=== PATIENT | female | born 1985 | race Two or more races ===

== ENCOUNTER 2019-05-13 06:22 | Day surgery (SDC) | payer OTHER ==
[2019-05-13] VITALS (13 sets, daily range): BP systolic 110–126; BP diastolic 60–80
[~2019-05-13] VITALS: Ht 154.9 cm; Wt 46.7 kg
[~2019-05-13 06:22] MED LIST: ADDERAL20 MG ORAL; CYMBALTA30 MG ORAL; MINIPRESS1 MG PO; ceFAZolin 1gm IVPB IVPB ONE; celeBREX 200mg Cap **SURGERY PATIENTS ONLY ORAL ONE; oxyCONTIN 20mg tab ORAL ONE
[2019-05-13] MEDS ORDERED: Ketorolac 30mg Inj ONE ×2 (07:15→08:13)
[2019-05-13] MEDS ORDERED: Kenalog-40 1ml Vial ONE (07:15)
[2019-05-13] MEDS ORDERED: Bupivacaine 0.25% Inj 30ml INJ ONE (07:16)
[2019-05-13] MEDS ORDERED: Lidocaine 1% 10mg/ml/Epi 0.005mg/ml 30ml vial INJ ONE (07:16)
[2019-05-13] MEDS ORDERED: Duramorph PF 5mg/10ml amp ONE (07:16)
[2019-05-13] MEDS ORDERED: Midazolam 2mg/2ml Inj ONE (07:34)
--- NOTE | 2019-05-13 07:37 | Pre-Procedure Note/Attestation ---
Pre-Procedure Note/Attestation Complete Prior to Procedure Planned Procedure: left Procedure Narrative: knee diagnostic arthroscopy, possible synovectomy, menisectomy Indications for Procedure Pre-Operative Diagnosis: left knee internal derangement Attestation I attest that I discussed the nature of the procedure; its benefits; risks and complications; and alternatives (and the risks and benefits of such alternatives ), prior to the procedure, with the patient (or the patient's legal sales and service representative). I attest that, if there was a reasonable possibility of needing a blood transfusion, the patient (or the patient's legal sales and service representative) was given the [facility] standardized written summary, pursuant to the Zhen Jonathan Blood Safety Act ([place] Health and Safety Code # 1645, as amended). I attest that I re-evaluated the patient just prior to the surgery and that there has been no change in the patient's H&P, except as documented below: Cleveland Loera MD May 13, 2019 07:37
--- NOTE | 2019-05-13 07:37 | Operative Note - PDOC ---
Operative Note Operative Note Pre-op Diagnosis: left knee internal derangement Procedure: see op report Post-op Diagnosis: same as pre-op plus Operative Findings: consistent w/pre-op dx studies Anesthesia: regional Specimen: none Complications: none Condition: stable Estimated Blood Loss: none Implant(s) used?: No Cleveland Loera MD May 13, 2019 07:37
[2019-05-13] MEDS ORDERED: fentaNYL 100 mcg/2 mL IV ONE (07:40)
[2019-05-13] MEDS ORDERED: HYDROcodone/Acetamin 5/325 tab ORAL PRN (07:45)
[2019-05-13] MEDS ORDERED: D5 1/2NS 1,000 ML IV SCH (07:45)
[2019-05-13] MEDS ORDERED: Tylenol #3 tab (300mg/30mg) ORAL PRN (07:45)
[2019-05-13] MEDS ORDERED: HYDROmorphone 1mg/ml Carpuject SUBQ PRN (07:45)
[2019-05-13] MEDS ORDERED: LR 1000ml ONE (08:00)
[2019-05-13] MEDS ORDERED: Lidocaine 1% MPF 10mg/ml 5ml ONE (08:11)
[2019-05-13] MEDS ORDERED: Propofol 200mg/20ml IV ONE (08:11)
--- NOTE | 2019-05-13 08:24 | Anethesia Preoperative Eval ---
Anesthesia Pre-op PMH/ROS General Date of Evaluation: May 13, 2019 Time of Evaluation: 07:00 ASA Score: ASA 1 Mallampati Score Class I : Soft palate, uvula, fauces, pillars visible Class II: Soft palate, uvula, fauces visible Class III: Soft palate, base of uvula visible Class IV: Only hard plate visible Mallampati Classification: Class I Allergies: Coded Allergies: No Known Allergies (Unverified , 05/13/19) Patient NPO?: Yes Anesthesia Pre-op Phys. Exam Physician Exam Last Vital Signs Date Time Temp Pulse Resp B/P (MAP) Pulse Ox O2 Delivery O2 Flow Rate FiO2 05/13/19 07:14 Room Air 05/13/19 06:53 98.4 64 18 117/68 100 Airway Exam Mallampati Score: Class I Anesthesia Pre-op A/P Labs Urine Test Test 05/13/19 06:35 Urine HCG, Qualitative Negative (NEGATIVE) Tyler Anderson MD May 13, 2019 08:24
--- NOTE | 2019-05-13 08:25 | Immediate Post-Op Evaluation ---
Immediate Post-Op Evalulation Immediate Post-Op Evalulation Procedure: L knee arthroscopy Date of Evaluation: May 13, 2019 Time of Evaluation: 08:25 Nausea: No Vomiting: No Tyler Anderson MD May 13, 2019 08:25
[2019-05-13] MEDS ORDERED: fentaNYL 100 mcg/2 mL IV PRN (08:30)
--- NOTE | 2019-05-13 09:55 | 48 Hour Post Anesthesia Eval ---
Post Anesthesia Evaluation Procedure: L knee arthroscopy Date of Evaluation: May 13, 2019 Nausea: No Vomiting: No Tyler Anderson MD May 13, 2019 09:55
--- NOTE | 2019-05-13 10:15 | Operative Note - Dictated ---
DATE OF OPERATION: 05/13/2019 PREOPERATIVE DIAGNOSES: 1. Left knee lateral tibial plateau fracture. 2. Hypertrophic fat pad/synovial tissue. PROCEDURE: 1. Left knee diagnostic arthroscopy. 2. Left knee medial lateral and patellofemoral synovectomy/excision fat pad incision. SURGEON: Cleveland Loera M.D. ANESTHESIA: General. INDICATION FOR PROCEDURE: The patient is a pleasant female, who had an injury to her left knee. She was diagnosed with an occult lateral tibial plateau fracture. She subsequently continued to have continued pain, mechanical symptoms, failed conservative treatment, and elected to undergo left knee diagnostic arthroscopy with possible meniscectomy, synovectomy, chondroplasty based on the intraoperative findings. Risks, limitations, expectations, and complications of the procedure were discussed in detail. All questions addressed. DESCRIPTION OF PROCEDURE: After informed consent was obtained, the patient was brought to the operating room and placed on the patient under general anesthesia. Left leg was prepped and draped in a sterile manner. Time-out was performed. Inferolateral stab incision was then made. Trocar was introduced into the suprapatellar pouch with resistance and the patellofemoral compartment was entered. There was hypertrophic fat pad synovial tissue in patellofemoral compartment extending the medial gutter and medial compartment. Medial gutter was entered. Along with the intercondylar notch, medial working portal was established. Synovectomy and excision of the fat pad was performed in the anterior compartment of the medial compartment for better visualization. Medial compartment was entered. Meniscus was probed and noted to be intact. The cartilage was evaluated and noted to be intact. The synovectomy and excision of fat pad was extending into the intercondylar and lateral compartment. Lateral compartment was entered. There was an area where she had evidence of occult fracture. There is no meniscal pathology. The cartilage appeared to be intact. Camera was then positioned in the patellofemoral compartment and excision of fat pad was completed. The camera was then placed in the medial working portal. An excision of the fat pad along the lateral gutter was performed. Instruments were removed. Portal sites were closed with 3-0 Monocryl sutures. The patient was awakened and taken to the recovery room with stable vital signs. ESTIMATED BLOOD LOSS: None. COMPLICATIONS: None. SPECIMENS: None. Cleveland Loera M.D. DR: [email or web address] JOB#: [id number] CC:
== END 2019-05-13 13:25 | disposition home or self-care (01) ==
LOC: SUR 06:22
DX: S82.142A Displaced bicondylar fracture of left tibia, initial encounter for closed fracture (principal); M79.4 Hypertrophy of (infrapatellar) fat pad; X58.XXXA Exposure to other specified factors, initial encounter; Y92.9 Unspecified place or not applicable
CPT/HCPCS: 29876; 81025; J0690; J1885; J2250; J2405; J2704; J3010; J3301; J3490; 94003; 94150